=== PATIENT | male | born 1955 | race Caucasian/White ===

== ENCOUNTER 2023-05-13 12:24 | Outpatient (CLI) | payer MEDICARE, OTHER, SELFPAY ==
--- NOTE | 2023-05-13 | ECG_ITS ---
Measurements Intervals [place] Rate: 67 P: 42 AK: 199 QRS: -38 QRSD: 111 T: 22 QT: 400 QTc: 424 Interpretive Statements SINUS RHYTHM LEFT AXIS DEVIATION INCOMPLETE RIGHT BUNDLE BRANCH BLOCK BASELINE WANDER- I, II, AVR BORDERLINE ECG NO PREVIOUS ECG AVAILABLE FOR COMPARISON Electronically Signed On 05-13-2023 13:04:22 CDT by Rohit Edward D.O.
== END 2023-05-13 12:25 | disposition home or self-care (01) ==
PROVIDERS: PCP Nurse Practitioner Family; Visit Provider Nurse Practitioner
DX: R53.83 Other fatigue (principal); I10 Essential (primary) hypertension; R07.9 Chest pain, unspecified; I45.10 Unspecified right bundle-branch block
CPT/HCPCS: 93005